=== PATIENT | female | born 1980 | race Caucasian/White ===

== ENCOUNTER 2018-07-27 12:38 | Emergency (ER) | payer SELFPAY ==
[~2018-07-27] VITALS: Ht 162.6 cm; Wt 61.7 kg
--- NOTE | 2018-07-27 13:00 | NUR ---
BIB SELF C/O LT UPPER ABD PAIN RAD TO LT FLANK PAIN WITH VOMITING AND DIARRHEA, PATIENT A/OX4, BREATHING EVEN AND UNLABORED, NO SOB NOTED, VSS. MD AT BEDSIDE FOR EVAL.
[2018-07-27 13:21] LABS: BASOPHILS % (AUTO) 0.6 % (0.0-2.0); EOSINOPHILS % (AUTO) 0.5 % (0.0-6.0); HEMATOCRIT 29 % (33-45); HEMOGLOBIN 8.7 g/dL (11.5-14.8); LYMPHOCYTES # (AUTO) 0.9 /CMM (0.8-4.8); LYMPHOCYTES % (AUTO) 16.2 % (20.0-44.0); MEAN CORPUSCULAR HGB CONC 30 g/dl (31.0-36.0); MEAN CORPUSCULAR VOLUME 68 fL (82-100); MONOCYTES # (AUTO) 0.2 /CMM (0.1-1.30); MONOCYTES % (AUTO) 4.6 % (2.0-12.0); NEUTROPHILS # (AUTO) 4.2 /CMM (1.8-8.9); NEUTROPHILS % (AUTO) 78.1 % (43.0-81.0); PLATELET COUNT (AUTO) 288 /CMM (150-450); RED BLOOD CELL COUNT(AUTO) 4.26 MIL/uL (4.0-5.2); WHITE BLOOD COUNT (AUTO) 5.4 K/uL (4.3-11.0)
[2018-07-27 13:28] LABS: CALCIUM, SERUM 8.4 mg/dL (8.5-10.1); CREATININE 0.6 mg/dL (0.6-1.3); POTASSIUM 3.9 mmol/L (3.5-5.1)
[2018-07-27] MEDS ORDERED: ONDANSETRON HCL/PF 4 MG/2 ML VIAL IVP ONE (13:30)
[2018-07-27] MEDS ORDERED: IV NS 0.9% 1,000 ML BAG IV ONE (13:30)
[2018-07-27] MEDS ORDERED: MORPHINE SULFATE INJ 2 MG/ML DISP.SYRIN IV ONE (13:30)
[2018-07-27 13:34] LABS: ALBUMIN 3.4 g/dL (3.4-5.0); BILIRUBIN,TOTAL 0.2 mg/dL (0.2-1.0); TOTAL PROTEIN, SERUM 6.2 g/dL (6.4-8.2)
[2018-07-27] MEDS ORDERED: MORPHINE SULFATE INJ 4 MG/ML DISP.SYRIN ONE (13:38)
[2018-07-27] MEDS ORDERED: ONDANSETRON HCL/PF 4 MG/2 ML VIAL ONE ×2 (13:38→14:41)
--- NOTE | 2018-07-27 13:50 | NUR ---
MD AT BEDSIDE DISCUSSING LAB RESULTS.
[2018-07-27 14:06] LABS: APPEARANCE,URINE Clear (CLEAR); BILIRUBIN,URINE Negative (NEGATIVE); BLOOD, URINE Negative Ery/uL (NEGATIVE); COLOR,URINE Yellow (YELLOW); KETONES,URINE 15 (NEGATIVE); LEUKOCYTE ESTERASE ,URINE Negative (NEGATIVE); NITRITE, URINE Negative (NEGATIVE); PROTEIN,URINE Negative (NEGATIVE); UGLUCOSE Negative (NEGATIVE); UROBILINOGEN,URINE 0.2 EU/dL (0.2)
[2018-07-27 14:14] LABS: BACTERIA,URINE None seen /HPF (None Seen); RBC,URINE 0-2 /HPF (0-2); SQUAMOUS EPITHELIAL CELL,UR Few /HPF (None Seen); WBC,URINE 0-2 /HPF (0-3)
[2018-07-27] MEDS ORDERED: HYDROMORPHONE 1 MG/1 ML DISP.SYRIN ONE (14:41)
[2018-07-27] MEDS ORDERED: LORAZEPAM INJ 2 MG/ML VIAL ONE (14:42)
[2018-07-27] MEDS ORDERED: HYDROMORPHONE INJ 0.5 MG/0.5 ML SYRINGE IV ONE (15:00)
[2018-07-27] MEDS ORDERED: ONDANSETRON HCL/PF 4 MG/2 ML VIAL IM ONE (15:00)
[2018-07-27] MEDS ORDERED: LORAZEPAM INJ 2 MG/ML VIAL IV ONE (15:00)
--- NOTE | 2018-07-27 15:23 | NUR ---
PATIENT WENT TO THE RESTROOM, C/O ABDOMINAL PAIN, PT DESCRIBES STABBING PAIN. AND PATIENT ALSO VERBALIZED AN EPISODE OF DIARRHEA. MD MADE AWARE. NO NEW ORDER AT THIS TIME, AWAITING FOR CT RESULT.
[2018-07-27] MEDS ORDERED: LORAZEPAM 0.5 MG TABLET ONE (16:29)
[2018-07-27] MEDS ORDERED: LORAZEPAM 1 MG TABLET PO ONE (16:30)
--- NOTE | 2018-07-27 17:02 | NUR ---
PATIENT KEPT REQUESTING FOR IV ATIVAN BUT MD REFUSES AND EXPLAINED RISKS. PATIENT EVENTUALLY AGREED WITH ATIVAN PO. DISCHARGE INSTRUCTIONS PROVIDED, AND PATIENT REFUSED TO SIGN DISCHARGE PAPERWORKS. MD HAS EXPLAINED TO THE PATIENT RESULT OF IMAGES AND BLOOD WORKS, AND IS CLEARED FOR DISCHARGE. INFORMED PATIENT TO FOLLOW UP WITH PRIMARY CARE PHYSICIAN. PATIENT'S PERIPHERAL IV REMOVED AND LEFT THE FACILITY IN STABLE CONDITION.
[2018-07-27 17:21] VITALS: BP 107/85
== END 2018-07-27 17:29 | disposition home or self-care (01) ==
LOC: ER 12:40
DX: R10.13 Epigastric pain (principal); R10.12 Left upper quadrant pain; R11.10 Vomiting, unspecified; R19.7 Diarrhea, unspecified; D64.9 Anemia, unspecified; K21.9 Gastro-esophageal reflux disease without esophagitis; F41.9 Anxiety disorder, unspecified; Z76.5 Malingerer [conscious simulation]; Z90.49 Acquired absence of other specified parts of digestive tract; Z88.6 Allergy status to analgesic agent; Z86.19 Personal history of other infectious and parasitic diseases
CPT/HCPCS: 36415; 74176; 80048; 80076; 81001; 83690; 84703; 85025; 96361; 96372; 96374; 96375; 99284; A4606; J1170; J2060; J2270; J2405 ×2; J7030; 81000-TC